=== PATIENT | female | born 1955 | race Caucasian/White ===

== ENCOUNTER 2021-07-14 | Emergency (ER) | payer BC, SELFPAY ==
[2021-07-14] MEDS ORDERED: Iopamidol 370 76% 100 ML VIAL ONE (09:00)
[2021-07-14] MEDS ORDERED: Ketorolac Tromethamine 30 MG/ML VIAL ONE (12:39)
[2021-07-14 12:54] LABS: Chloride 105 mmol/L (98-107); Potassium 3.8 mmol/L (3.5-5.1); Sodium 136 mmol/L (136-145)
[2021-07-14 13:15] LABS: ALT (SGPT) 11 U/L (8-55); AST (SGOT) 13 U/L (5-34); Albumin 3.8 g/dL (3.4-4.8); Alkaline Phosphatase 71 U/L (40-110); BUN (Urea Nitrogen) 8 mg/dL (9.8-20.1); Bilirubin, Total 0.5 mg/dL (0.2-1.2); CK (CPK) 25 U/L (29-168); Calc. Creatinine Clearance 0 mL/min (70-130); Calcium 9.5 mg/dL (7.8-10.44); Carbon Dioxide 23 mmol/L (23-31); Globulin 3.5 g/dL (2.4-3.5); Glucose 120 mg/dL (80-115); Lipase 16 U/L (8-78); Protein, Total 7.3 g/dL (5.8-8.1)
[2021-07-14 13:25] LABS: Anion Gap 12 mmol/L (10-20)
[2021-07-14] MEDS ORDERED: Enoxaparin Sodium 120 MG/0.8 ML SYRINGE SC ONE (14:51)
[2021-07-14 15:53] LABS: SARS-CoV-2 NAA Rapid Test Not Detected (NotDetected)
[2021-07-14] MEDS ORDERED: Fentanyl 100 MCG/2 ML VIAL ONE (17:35)
== END 2021-07-14 17:43 | disposition short-term general hospital (02) ==
CPT/HCPCS: 71275; 80053; 82550; 83690; 84484; 85025; 93005; 96372; 96374; 96375; J1650; J1885; J3010; Q9967; U0002